=== PATIENT | male | born 1990 | race Caucasian/White ===

== ENCOUNTER 2019-04-16 16:05 | Emergency (ER) | payer BC ==
[~2019-04-16] VITALS: Ht 182.9 cm; Wt 125.4 kg
[2019-04-16 16:18] VITALS: Ht 182.9 cm; Wt 125.4 kg
[2019-04-16 16:46] LABS: CALCIUM 8.8 mg/dL (8.5-10.1); CARBON DIOXIDE 26.9 mmol/L (21-32); CHLORIDE SERUM 104 mmol/L (98-107); GFR1 > 60 mL/min; GLUCOSE SERUM 103 mg/dL (74-106); POTASSIUM SERUM 3.7 mmol/L (3.5-5.1); SODIUM SERUM 141 mmol/L (136-145)
[2019-04-16 16:50] LABS: ALBUMIN 4.1 g/dL (3.4-5.0); ALKALINE PHOSPHATASE 56 U/L (46-116); ALT/SGPT 34 U/L (16-63); AMYLASE 45 U/L (25-115); AST/SGOT 30 U/L (15-37); BILIRUBIN TOTAL 0.8 mg/dL (0.20-1.00); LIPASE 125 IU/L (73-393)
[2019-04-16 16:54] LABS: BASOPHIL % 0.5 % (0-2); PLATELET COUNT 239 x10^3mcL (130-400); RED CELL DISTRIBUTION WIDTH 13.1 % (11.5-14.5)
[2019-04-16 19:29] VITALS: BP 122/66
== END 2019-04-16 19:29 | disposition home or self-care (01) ==
LOC: ED 16:05
DX: K29.20 Alcoholic gastritis without bleeding (principal)
CPT/HCPCS: J1885; J2405; J3490; J7030; Q0092